=== PATIENT | male | born 1975 | race Caucasian/White ===

== ENCOUNTER 2021-08-09 17:38 | Emergency (ER) | payer BC ==
[~2021-08-09] VITALS: Ht 182.9 cm; Wt 80.7 kg
[2021-08-09 18:27] VITALS: BP 139/85
--- NOTE | 2021-08-09 18:55 | NUR ---
Patient discharged to home in stable condition. Written and verbal after care instructions given. Patient verbalizes understanding of instruction.
--- NOTE | 2021-08-09 18:56 | NUR ---
UNABLE TO DEPART, [facility] ERROR
== END 2021-08-09 19:30 | disposition home or self-care (01) ==
LOC: ER 18:57
DX: S61.217A Laceration without foreign body of left little finger without damage to nail, initial encounter (principal); W26.8XXA Contact with other sharp object(s), not elsewhere classified, initial encounter; Y93.G1 Activity, food preparation and clean up; Y92.89 Other specified places as the place of occurrence of the external cause; Y99.8 Other external cause status